=== PATIENT | male | born 1970 | race Caucasian/White ===

== ENCOUNTER 2019-06-16 07:27 | Day surgery (SDC) | payer BC ==
--- NOTE | 2019-06-13 09:49 | HP ---
DATE OF SURGERY: 06/16/2019 ANTICIPATED PROCEDURE: Colonoscopy. HISTORY OF PRESENT ILLNESS: The patient had a positive Cologuard and presents for colonoscopy. PAST MEDICAL HISTORY: ALLERGIES: NONE. MEDICATIONS: Prednisone. PAST SURGICAL HISTORY: Removal of cyst on the nose. SOCIAL HISTORY: Positive tobacco. Negative ETOH. FAMILY HISTORY: Negative. REVIEW OF SYSTEMS: Negative. PHYSICAL EXAMINATION: VITAL SIGNS: Normal. CHEST: Clear. COR: Regular. ABDOMEN: Satisfactory. IMPRESSION: Positive Cologuard. PLAN: Colonoscopy.
[~2019-06-16 07:27] MED LIST: Lactated Ringers 1,000 ML IV SCH
[2019-06-16] MEDS ORDERED: Lactated Ringers 1,000 ML IV ONE ×2 (07:48→10:19)
[2019-06-16] MEDS ORDERED: DIPRIVAN 200 MG/20 ML IV ONE ×3 (10:01→10:27)
[2019-06-16] MEDS ORDERED: GlucaGen 1 MG ONE (10:21)
--- NOTE | 2019-06-16 11:26 | OP ---
SURGERY DATE/TIME: 06/16/2019 1003 PREOPERATIVE DIAGNOSIS: Positive Cologuard. POSTOPERATIVE DIAGNOSES: 1) Two sigmoid polyps one jar. 2) Two rectal polyps one jar. PROCEDURES: 1) Colonoscopy complete to cecum. 2) Hot polypectomy x4. SURGEON: Yousif Bejarano M.D. ANESTHESIA: MAC. COMPLICATIONS: None. CONDITION: Stable. INDICATION: A patient requiring evaluation. DESCRIPTION OF PROCEDURE: Taken to endoscopy. MAC sedation provided. On anal digital examination the prostate was not noticeable. Scope introduced advanced to the cecum. Base of cecum, ileocecal valve and appendiceal orifice is normal. Ascending, hepatic, transverse, splenic was all normal. In the distal descending there were two polyps taken with hot biopsy forceps and in the rectum there were two polyps taken with hot biopsy forceps. Anus was satisfactory. Scope withdrawn. IMPRESSION: Successful MAURO-test with four polyps. PLAN: Rescope in three years.
[2019-06-16 11:35] VITALS: O2SAT 98
[2019-06-16 11:39] VITALS: BP 144/86; PULSE 67
== END 2019-06-16 11:39 | disposition home or self-care (01) ==
LOC: SDC 07:27
PROVIDERS: ATTEND Surgery
DX: Z12.11 Encounter for screening for malignant neoplasm of colon (principal); K63.5 Polyp of colon; K62.1 Rectal polyp
CPT/HCPCS: 88305; J1610; J2704